=== PATIENT | male | born 1965 | race Caucasian/White ===

== ENCOUNTER 2016-12-19 09:00 | Inpatient (IN) | payer BC ==
[2016-12-08 12:48] VITALS: BMI 40.7
--- NOTE | 2016-12-20 15:25 | HP ---
[facility] - Chief Complaint Chief Complaint: right knee pain - Past Medical History Allergies/Adverse Reactions: Allergies Allergy/AdvReac Type Severity Reaction Status Date / Time No Known Drug Allergies Allergy Verified 12/08/16 12:41 - Current Medications Current Medications: Home Medications Medication Instructions Recorded Omeprazole [Prilosec (RX)] 20 mg PO PRN PRN #0 capsule. 01/08/14 Oxycodone HCl [Oxycontin] 80 mg PO BID 10/16/14 [facility] Physical Exam - Physical Examination General Appearance: Well Nourished, Well Developed, Alert & Oriented x3 ENT: Clear Lung: Normal air movement Heart: Regular rate & rhythm Extremities: Other (right knee- + swelling, + ttp, decr rom, nvi xrays show severe tricompartmental djd) Neurological: Intact, Alert, Oriented Satellite Impression/Plan - Impression/Plan Impression: right knee djd Operative Procedure: right felice tkr Date to be Performed: 12/22/16
[2016-12-22] MEDS ORDERED: ROPIVACAINE 0.2% 400ML 400 ML ML NR SCH
[2016-12-22] MEDS ORDERED: CEFAZOLIN 2 GM in DEXTROSE 5%-WATER - 50 ML IVPB ONE (10:46)
[2016-12-22] MEDS ORDERED: TRANEXAMIC ACID 1000 MG/10 ML VIAL IVPUSH ONE (10:46)
[2016-12-22] MEDS ORDERED: oxyCODONE HCL 10 MG SUSTAINED ACTING TABLET PO ONE (10:46)
[2016-12-22] MEDS ORDERED: DEXAMETHASONE SOD PHOSPHATE/PF 10 MG/ML SDV ONE (11:24)
[2016-12-22] MEDS ORDERED: MIDAZOLAM HCL 2 MG/2 ML SINGLE DOSE VIAL ONE ×2 (11:24→13:46)
[2016-12-22] MEDS ORDERED: ROPIVACAINE HCL 0.5% 30ML VIAL ONE (11:24)
[2016-12-22] MEDS ORDERED: SODIUM CHLORIDE 0.9% P/F 10 ML VIAL IJ ONE (11:24)
[2016-12-22] MEDS: CELECOXIB 200 MG CAPSULE PO ONE ×2 (11:25→16:28)
[2016-12-22] MEDS: GABAPENTIN 300 MG CAPSULE (FP) PO ONE ×2 (11:25→16:29)
[2016-12-22] MEDS ORDERED: PROPOFOL 20 ML ONE (12:17)
[2016-12-22] MEDS ORDERED: ROPIVICAINE 0.2%/MORPH PF/KETOROLAC - 51ML DISP.SYRINGE IA ONE (12:44)
[2016-12-22] MEDS ORDERED: ePHEDrine SULFATE 50 MG/1 ML AMPULE ONE (13:31)
[2016-12-22] MEDS ORDERED: ceFAZolin SODIUM 1 GM VIAL ONE (13:35)
[2016-12-22] MEDS ORDERED: TRANEXAMIC ACID 1000 MG/10 ML VIAL ONE (13:35)
[2016-12-22] MEDS ORDERED: KETOROLAC TROMETHAMINE 30 MG/1 ML VIAL ONE (13:47)
[2016-12-22] MEDS ORDERED: ONDANSETRON 4 MG/2 ML VIAL ONE (13:47)
[2016-12-22] MEDS ORDERED: DEXAMETHASONE SOD PHOSPHATE 4 MG/1 ML VIAL ONE (13:47)
[2016-12-22] MEDS ORDERED: oxyCODONE HCL 5 MG TABLET PO PRN (14:45)
[2016-12-22] MEDS ORDERED: VANCOMYCIN 1,000 MG VIAL (RESTRICTED TO ID ONLY) IVPB ONE ×2 (15:00→15:50)
[2016-12-22] MEDS ORDERED: ONDANSETRON 4 MG/2 ML VIAL IVPUSH PRN (15:17)
[2016-12-22] MEDS ORDERED: PATIENT'S OWN MEDICATION (NON-FORMULARY) (Omeprazole Pediatric Solution 20 MG) PO PRN (15:34)
[2016-12-22] MEDS ORDERED: ONDANSETRON 4 MG/2 ML VIAL IVPB PRN (15:35)
--- NOTE | 2016-12-22 15:38 | SURG ---
Surgery Board Certified Family Physician Note Board Certified Family Physician: Doug Morataya PA-C Date of Service: 12/22/16 Diagnosis: Right knee DJD Procedure: Right knee PEMA TKR I was present for the entirety of the operative procedure. For further detail, please refer to operative report. Visit type - Case Type Case Type: Scheduled Admission - New patient This patient is new to me today: Yes Date on this admission: 12/22/16
--- NOTE | 2016-12-22 15:39 | OP ---
Operative Note - Note: Operative Date: 12/22/16 Pre-Operative Diagnosis: Right knee djd Operation: right knee PEMA TKR Post-Operative Diagnosis: Same as Pre-op Surgeon: Rodney Taylor Anesthesia: Spinal Estimated Blood Loss (mls): 200 Fluid Volume Replaced (mls): 1,000 Operative Report Dictated: Yes
[2016-12-22] MEDS ORDERED: LACTATED RINGERS SOLUTION 1,000 ML IV SCH (15:45)
[2016-12-22] MEDS ORDERED: MAG HYDROX/AL HYDROX/SIMETH 30 ML UNIT-DOSE CUP PO PRN (15:52)
--- NOTE | 2016-12-22 16:00 | SPEC ---
DATE OF SURGERY: OPERATION: Right total knee replacement with robotic-assisted navigation (MAKOplasty). PREOPERATIVE DIAGNOSIS: Degenerative joint disease, right knee. POSTOPERATIVE DIAGNOSIS: Degenerative joint disease, right knee. SURGEON: Rodney Taylor M.D. CONDUIT HELPER: Maty Hernandez ANESTHESIA: Regional and spinal. CLOSURE: A Triathlon knee system with a 4 femur, a 5 tibia, a 9 polyethylene, a 32 patella. A number 1 Vicryl fascia, 0 and 2-0 for subcutaneous, 3-0 Monocryl subcuticular with skin glue for skin, 4-0 undyed Vicryl for pin sites. ESTIMATED BLOOD LOSS: Approximately 150 mL COMPLICATIONS: None CONDITION: To recovery room in stable condition. DESCRIPTION OF PROCEDURE: Patient was taken to the operating room. Regional and spinal anesthesia were administered by the anesthesiologist. IV antibiotics and TXA were administered prophylactically prior to the case. A well-padded pneumatic tourniquet was placed on the right proximal thigh. The right lower extremity was prepped and draped in the usual sterile fashion. An approximately 12-cm midline incision centered over the patella was incised. Hemostasis was achieved with Bovie cautery. Sharp dissection was carried down to the level of the extensor mechanism the procedure. A medial parapatellar arthrotomy was then performed. The patella was inverted and the knee was flexed up to 90 degrees. Subperiosteal dissection was performed on the anteromedial proximal tibia until the knee was able to be brought forward. This was facilitated by taking the ACL, the PCL, and the medial and lateral menisci. A checkpoint was malleted into the medial femoral condyle and into the anteromedial proximal tibia. Through 2two small stab incisions in the mid femur and 2two in the mid tibia, 2two bicortical pins were drilled, achieving excellent height. Two of these pins were attached to the navigation arrays. The knee was then registered with the navigation device by rotating the hip to ascertain the center of rotation of the hip with points on both the medial and lateral malleoli and multiple points on both the femur and on the tibia. Excellent registration was confirmed by "popping the bubbles." At this time, the osteophytes on the edges of the proximal tibia both medially and laterally, as well as on the medial lateral femoral condyles underneath the collateral ligaments were debrided. The knee was stressed in extension and in flexion to confirm good gaps. The virtual positions of the components were then optimized in order to have a balanced knee, both in extension and in 90 degrees of flexion. The sizes of the components were also optimized to get good coverage over both the tibia and the femur and to produce equal gaps in extension and flexion with the appropriate amount of external rotation of the femur, the appropriate amount of flexion of the femoral component and the appropriate slope on the tibial component. At this time, the robot was brought into the field and registered. The robot was used to cut the proximal tibia and to make all the cuts on the distal femur. The bone was then removed. A spacer block in extension and flexion was used to confirm equal balancing of the component in both extension and 90 degrees of flexion. The box for the posterior cruciate sacrificing component was then performed and a trial component on the femur and tibia was applied. The femoral component was clipped into place with the appropriate external rotation. This was confirmed by the navigation device, ensuring the appropriate position of the tibial component on the proximal tibia. The patella was calipered for thickness and osteotomized at the appropriate level. A lollipop was used to drill the three lugholes in the patella and then a trial component was applied. The knee was taken through a range of motion and found to have excellent tracking of the patella from full extension to full flexion, with good stability, varus/valgus throughout range of motion. The trial components were then removed. Before removing the tibial tray, the keyhole was made. The knee was then thoroughly irrigated with antibiotic irrigation. The real components were then cemented in, using modern generation cement techniques with antibiotic cement and pressurization. After the cement was hardened, the knee was thoroughly inspected to remove all excess cement. The real polyethylene component was then clipped into place. Again, range of motion, stability and tracking were found to be excellent throughout. The knee was then pulse antibiotic irrigated and dried. Vancomycin powder was placed into the knee. The checkpoints were removed. The medial parapatellar arthrotomy was then closed using number 1 Vicryl interrupted suture. The knee was again taken through range of motion and found to have no undue tension on the repair and good tracking throughout. The subcutaneous was closed with 0 and 2-0 Vicryl and 3-0 Monocryl subcuticular for skin with skin glue. The pins were removed in the femur and the tibia and pulse antibiotic irrigated and closed with 4-0 undyed Vicryl. Sterile Aquacel dressing followed by a Hernández dressing was applied. The tourniquet was then deflated. One more dose of TXA was administered at the end of the case. The patient was awakened from anesthesia and transferred to the recovery room in stable condition. X-rays revealed good position of the components. There were no complications. Estimated blood loss was negligible. Total tourniquet time was approximately 75 minutes. Brandon [id number]
[2016-12-22] MEDS: HYDROmorphone HCL CARPU-JECT 1 MG/1 ML DISP.SYRIN IVPUSH PRN ×2 (16:01→16:11)
[2016-12-22] MEDS: LACTATED RINGERS SOLUTION 1,000 ML IV SCH (16:29)
[2016-12-22] MEDS: ACETAMINOPHEN 325 MG TABLET (FP) PO SCH (17:59)
[2016-12-22] MEDS: oxyCODONE HCL 5 MG TABLET PO PRN (18:41)
[2016-12-22] MEDS: CEFAZOLIN 2 GM/D5W 50 ML IVPB SCH (21:15)
[2016-12-22] MEDS: SENNOSIDES/DOCUSATE COMBO (SENNA PLUS) TABLET (UD) PO SCH (21:15)
[2016-12-22] MEDS: GABAPENTIN 300 MG CAPSULE (FP) PO SCH (21:15)
[2016-12-22] MEDS: oxyCODONE HCL 40 MG SUSTAINED ACTING TABLET PO SCH (21:15)
[2016-12-22] MEDS: CELECOXIB 200 MG CAPSULE PO SCH (21:16)
[2016-12-22] MEDS: ASCORBIC ACID 500 MG TABLET (FP) PO SCH (21:17)
[2016-12-22] MEDS ORDERED: GABAPENTIN 300 MG CAPSULE (FP) PO SCH (22:00)
[2016-12-22] MEDS ORDERED: oxyCODONE HCL 10 MG SUSTAINED ACTING TABLET PO SCH (22:00)
[2016-12-23] MEDS: ACETAMINOPHEN 325 MG TABLET (FP) PO SCH ×3 (00:33→15:23)
[2016-12-23] MEDS ORDERED: ASPIRIN 325 MG TABLET PO SCH (08:00)
[2016-12-23] MEDS: oxyCODONE HCL 5 MG TABLET PO PRN ×2 (08:16→16:48)
[2016-12-23 09:08] LABS: MCH 26.1 pg (25.7-33.7); MEAN PLT VOLUME 7.8 fl (7.5-11.1); PLATELET COUNT 334 K/MM3 (134-434); RDW 14.9 % (11.9-15.9); WHITE BLOOD COUNT 12.3 K/mm3 (4.0-10.0)
[2016-12-23 09:13] LABS: CALCIUM 8.5 mg/dl (8.4-10.2); CREATININE 0.9 mg/dl (0.6-1.3)
[2016-12-23] MEDS ORDERED: MULTIVITAMINS (DAILY MVI) TABLET (FP) PO SCH (10:00)
[2016-12-23] MEDS ORDERED: PANTOPRAZOLE 40 MG TABLET (FP) PO SCH (10:00)
[2016-12-23] MEDS: GABAPENTIN 300 MG CAPSULE (FP) PO SCH (10:16)
[2016-12-23] MEDS: CEFAZOLIN 2 GM/D5W 50 ML IVPB SCH (10:16)
[2016-12-23] MEDS: oxyCODONE HCL 40 MG SUSTAINED ACTING TABLET PO SCH (10:16)
[2016-12-23] MEDS: CELECOXIB 200 MG CAPSULE PO SCH (10:16)
[2016-12-23] MEDS: SENNOSIDES/DOCUSATE COMBO (SENNA PLUS) TABLET (UD) PO SCH (10:16)
[2016-12-23] MEDS: ASCORBIC ACID 500 MG TABLET (FP) PO SCH (10:16)
[2016-12-23 15:05] VITALS: BP 148/71; PULSE 82; TEMP 98.5
[2016-12-23] MEDS: LACTATED RINGERS SOLUTION 1,000 ML IV SCH (15:24)
--- NOTE | 2016-12-23 17:08 | PN ---
Progress Note (short form) - Note Progress Note: Came to see pt, already discharged. I spoke to nurse about this pt earlier today. He will follow up with Dr Taylor in 1 week
--- NOTE | 2016-12-27 14:54 | PATH ---
Surgical Pathology Report Patient Name: SHONNA MCCRACKEN Med. Rec. #: [id number] /Age/Gender: 1965 (Age: 51) / M Account: [id number] Location: [facility] MED-SURG Taken: 12/22/2016 Received: 12/22/2016 Reported: 12/27/2016 Physicians: Rodney Taylor M.D. Specimen(s) Received RIGHT KNEE BONE TISSUE Clinical History Right knee osteoarthritis Final Diagnosis RIGHT KNEE BONE AND TISSUE, TOTAL KNEE REPLACEMENT: DEGENERATIVE JOINT DISEASE. Electronically Signed Joanna Luo M.D. Gross Description Received in formalin labeled "right knee bone and tissue," is a 9.5 x 8.0 x 2.0 cm aggregate of multiple smith-yellow, irregular portions of bone and soft tissue. The articular surfaces are smith-yellow and focally granular. No areas of eburnation are identified. The underlying trabecular bone is yellow and hard. Roof Technician sections are submitted in one cassette, following decalcification. 12/26/2016 [facility]
== END 2016-12-23 17:15 | disposition home health service (06) | DRG 470 ==
LOC: FM/S 12-22 09:59
PROVIDERS: ADMIT Orthopaedic Surgery; ATTEND Orthopaedic Surgery
PROC: 8E0Y0CZ Robotic Assisted Procedure of Lower Extremity, Open Approach (ICD-10-PCS; 2016-12-22)
PROC: 0SRC0J9 Replacement of Right Knee Joint with Synthetic Substitute, Cemented, Open Approach (ICD-10-PCS; principal; 2016-12-22 13:42)
DX: M17.11 Unilateral primary osteoarthritis, right knee (principal); Z68.41 Body mass index [BMI] 40.0-44.9, adult; K21.9 Gastro-esophageal reflux disease without esophagitis; E66.8 Other obesity; Z71.3 Dietary counseling and surveillance
CPT/HCPCS: 36415; 73560-TC-RT; 80048; 85027; 88304-TC; 88311-TC; 94760; 97116-GP; 97162-PG

== ENCOUNTER 2021-04-19 06:11 | Inpatient (IN) | payer OTHER ==
[2021-04-14 12:31] VITALS: BMI 42.3
[2021-04-19] MEDS ORDERED: BUPIVACAINE HCL/PF 0.25% (2.5MG/ML) 10 ML VIAL ONE (07:07)
[2021-04-19] MEDS ORDERED: BUPIVACAINE HCL/PF 0.5% (5 MG/ML) 30 ML VIAL IJ ONE (07:28)
[2021-04-19] MEDS ORDERED: BUPIVACAINE HCL/PF 0.5% (5MG/ML) 10 ML VIAL ONE (07:28)
[2021-04-19] MEDS ORDERED: BUPIVACAINE LIPOSOME/PF (EXPAREL) 266 MG/20 ML VIAL ONE (07:28)
[2021-04-19] MEDS ORDERED: MIDAZOLAM HCL 2 MG/2 ML SINGLE DOSE VIAL ONE (07:29)
[2021-04-19] MEDS ORDERED: PROPOFOL 20 ML ONE ×3 (07:36→10:11)
[2021-04-19] MEDS ORDERED: SUCCINYLCHOLINE CHLORIDE 200 MG/10 ML SYRINGE ONE (07:36)
[2021-04-19] MEDS ORDERED: fentaNYL CITRATE 250 MCG/5 ML VIAL ONE (07:36)
[2021-04-19] MEDS ORDERED: ROCURONIUM BROMIDE 50 MG/5 ML SYRINGE ONE (07:37)
[2021-04-19] MEDS ORDERED: SEVOFLURANE 250 ML BTL ONE (09:27)
[2021-04-19] MEDS ORDERED: NEOSTIGMINE METHYLSULFATE 0.5 MG/1 ML - 10 ML MDV ONE (10:04)
[2021-04-19] MEDS ORDERED: GLYCOPYRROLATE 0.2 MG/1 ML VIAL ONE (10:05)
[2021-04-19] MEDS ORDERED: KETOROLAC TROMETHAMINE 30 MG/1 ML VIAL ONE (10:08)
[2021-04-19] MEDS ORDERED: HYDROmorphone HCL/PF 1 MG/ML VIAL IVPB PRN ×3 (10:19→10:29)
[2021-04-19] MEDS ORDERED: FAMOTIDINE 20 MG/50 ML IVPB 20 MG/50 ML MG IVPB ONE (10:23)
[2021-04-19] MEDS ORDERED: METOCLOPRAMIDE HCL INJECTION 10 MG/2 ML VIAL ONE (10:24)
[2021-04-19] MEDS ORDERED: ONDANSETRON 4 MG/2 ML VIAL IVPUSH PRN (10:27)
[2021-04-19] MEDS ORDERED: HYDROmorphone HCL/PF 1 MG/ML VIAL IVPUSH PRN (10:27)
[2021-04-19] MEDS ORDERED: ACETAMINOPHEN INJECTION 100 ML IVPB ONE (10:28)
[2021-04-19] MEDS ORDERED: LACTATED RINGERS SOLUTION 1,000 ML IV SCH (10:30)
[2021-04-19] MEDS ORDERED: ACETAMINOPHEN 1000 MG/100 ML VIAL (NON FORMULARY) IVPB ONE (10:30)
[2021-04-19] MEDS: METOCLOPRAMIDE HCL INJECTION 10 MG/2 ML VIAL IVPUSH SCH ×3 (10:35→23:50)
[2021-04-19] MEDS ORDERED: FAMOTIDINE 20 MG PREMIXED IVPB IVPB ONE (10:46)
[2021-04-19 11:21] LABS: HEMATOCRIT 50.6 % (35.4-49); HEMOGLOBIN 16.5 GM/dl (11.7-16.9); MCH 27.5 pg (25.7-33.7); MCHC 32.6 g/dl (32.0-35.9); MEAN CELL VOLUME 84.4 fl (80-96); MEAN PLT VOLUME 7.3 fl (7.5-11.1); PLATELET COUNT 345 10^3/uL (134-434); RDW 13.5 % (11.9-15.9); WHITE BLOOD COUNT 15.8 K/mm3 (4.0-10.8)
[2021-04-19 11:29] LABS: ALBUMIN 4.3 g/dl (3.4-5.0); BILIRUBIN,TOTAL 0.6 mg/dl (0.2-1); TOT PROT 7.4 g/dl (6.4-8.2)
[2021-04-19] MEDS: SODIUM CHLORIDE 1,000 ML IV SCH (13:02)
[2021-04-19] MEDS: HYDROmorphone HCl 2 MG/ML VIAL IVPB PRN ×3 (13:03→21:15)
[2021-04-19] MEDS: ONDANSETRON 4 MG/2 ML VIAL IVPUSH PRN ×2 (13:10→21:15)
[2021-04-19 20:27] LABS: HEMATOCRIT 46.6 % (35.4-49); HEMOGLOBIN 15.9 GM/dl (11.7-16.9); MCH 27.9 pg (25.7-33.7); MEAN CELL VOLUME 82.2 fl (80-96); MEAN PLT VOLUME 6.9 fl (7.5-11.1); PLATELET COUNT 373 10^3/uL (134-434); RBC 5.68 M/mm3 (4.00-5.60); RDW 13.2 % (11.9-15.9); WHITE BLOOD COUNT 12.5 K/mm3 (4.0-10.8)
[2021-04-19 20:53] LABS: ALBUMIN 4.2 g/dl (3.4-5.0); BILIRUBIN,TOTAL 0.7 mg/dl (0.2-1); CALCIUM 8.8 mg/dl (8.5-10); CREATININE 0.9 mg/dl (0.55-1.3); TOT PROT 7.3 g/dl (6.4-8.2)
[2021-04-19] MEDS: FAMOTIDINE 20 MG/50 ML IVPB 20 MG/50 ML MG IVPB SCH (21:18)
[2021-04-20] MEDS: HYDROmorphone HCl 2 MG/ML VIAL IVPB PRN ×2 (01:21→05:57)
[2021-04-20] MEDS: SODIUM CHLORIDE 1,000 ML IV SCH (01:22)
[2021-04-20] MEDS: METOCLOPRAMIDE HCL INJECTION 10 MG/2 ML VIAL IVPUSH SCH ×2 (05:58→10:51)
[2021-04-20 06:22] VITALS: BP 133/82; PULSE 65; TEMP 98.3
[2021-04-20 08:36] LABS: HEMATOCRIT 40.8 % (35.4-49); HEMOGLOBIN 13.4 GM/dl (11.7-16.9); MEAN PLT VOLUME 7.2 fl (7.5-11.1); PLATELET COUNT 327 10^3/uL (134-434); RBC 4.97 M/mm3 (4.00-5.60); RDW 13.5 % (11.9-15.9); WHITE BLOOD COUNT 11.5 K/mm3 (4.0-10.8)
[2021-04-20] MEDS ORDERED: ACETAMINOPHEN 325 MG TABLET (FP) PO PRN (08:41)
[2021-04-20 08:45] LABS: ALBUMIN 3.6 g/dl (3.4-5.0); BILIRUBIN,TOTAL 0.6 mg/dl (0.2-1); CALCIUM 8.6 mg/dl (8.5-10); CREATININE 0.9 mg/dl (0.55-1.3)
[2021-04-20] MEDS ORDERED: SODIUM CHLORIDE 1,000 ML IV SCH (08:45)
[2021-04-20] MEDS: FAMOTIDINE 20 MG/50 ML IVPB 20 MG/50 ML MG IVPB SCH (10:51)
== END 2021-04-20 12:21 | disposition home or self-care (01) | DRG 621 ==
LOC: FM/S 06:11
PROVIDERS: ADMIT Surgery; ATTEND Surgery
PROC: 0DB64Z3 Excision of Stomach, Percutaneous Endoscopic Approach, Vertical (ICD-10-PCS; principal; 2021-04-19 08:47)
DX: E66.01 Morbid (severe) obesity due to excess calories (principal); I10 Essential (primary) hypertension; G47.33 Obstructive sleep apnea (adult) (pediatric); Z68.41 Body mass index [BMI] 40.0-44.9, adult
CPT/HCPCS: 36415; 74240-TC-FY; 80053; 85027; 86850; 86900; 86901; 88305-TC; J0131; Q9967